=== PATIENT | female | born 1985 ===

== ENCOUNTER 2025-06-06 06:12 | Day surgery (SDC) | payer OTHER, SELFPAY ==
[2025-06-06] VITALS (8 sets, daily range): BP systolic 98–125; BP diastolic 56–80; BMI 45.3
[2025-06-06] MEDS: TYLENOL 1000 MG PO (11:15)
[2025-06-06] MEDS: NORMOSOL-R/PLASMALYTE-A 1000 IV (11:17)
[2025-06-06 11:30] LABS: APTT 31.7 Sec (23.4-35.0); Hematocrit 38.8 % (37.0-47.0); Hemoglobin 13.0 g/dL (12.0-16.0); INR 0.98; Mean Corp Hgb Conc. 33.5 g/dL (33.0-37.0); Mean Corpuscular Volume 85.8 fL (81.0-99.0); Nucleated Red Blood Cells % 0 %; PT 13.5 Sec (11.4-14.6); Platelet Count 302 10^3/uL (130-400); Red Cell Dist. Width 12.9 % (11.5-14.5)
[2025-06-06] MEDS: VIBRAMYCIN 270 MG IV (12:58)
[2025-06-06] MEDS: DILAUDID 0.5 MG IV (14:34)
== END 2025-06-06 15:50 | disposition home or self-care (01) ==
LOC: SDS 06:12
PROVIDERS: ATTENDING PHYSICIAN Obstetrics & Gynecology
DX: O02.1 Missed abortion (principal); Z3A.10 10 weeks gestation of pregnancy; E28.2 Polycystic ovarian syndrome
CPT/HCPCS: 59820; 85025; 85610; 85730; 86850; 86900; 86901; 88305